=== PATIENT | female | born 1985 | race Caucasian/White ===

== ENCOUNTER 2017-12-27 12:50 | Emergency (ER) | payer MEDICAID ==
[~2017-12-27] VITALS: Ht 157.5 cm; Wt 63.0 kg
[~2017-12-27 12:50] MED LIST: ASPI-1265 PO
[2017-12-27] MEDS ORDERED: ketorolac tromethamine 15mg/ml inj. IM ONE (13:10)
[2017-12-27] MEDS ORDERED: proCHLORperazine 10 MG/2 ml inj IM ONE (13:10)
[2017-12-27 13:51] VITALS: BP 110/65
== END 2017-12-27 14:02 | disposition home or self-care (01) ==
LOC: ER 12:51
DX: G43.909 Migraine, unspecified, not intractable, without status migrainosus (principal); Z79.899 Other long term (current) drug therapy; Z91.018 Allergy to other foods; Z79.82 Long term (current) use of aspirin
CPT/HCPCS: 96372; 99284; J0780; J1885

== ENCOUNTER 2018-01-23 20:50 | Emergency (ER) | payer MEDICAID ==
[~2018-01-23] VITALS: Ht 157.5 cm; Wt 47.7 kg
[2018-01-23 21:02] VITALS: BP 107/54
[2018-01-23 21:57] LABS: CLARITY,URINE CLEAR (Clear); COLOR,URINE YELLOW (Yellow); GLUCOSE, URINE NEGATIVE (Neg); KETONES,URINE NEGATIVE (Neg); LEUKOCYTE ESTERASE ,URINE NEGATIVE (Neg); NITRITES, URINE NEGATIVE (Neg); OCCULT BLOOD,URINE NEGATIVE (Neg); PROTEIN,URINE NEGATIVE (Neg); UROBILINOGEN,URINE 0.2 E.U/dL (0.2-1.0)
[2018-01-23 21:59] LABS: BASOPHILS # (AUTO) 0.1 X10'3 (0-0.2); BASOPHILS % (AUTO) 0.5 % (0-1); EOSINOPHILS # (AUTO) 0.2 X10'3 (0-0.9); EOSINOPHILS % (AUTO) 1.8 % (0-6); HEMATOCRIT 38.5 % (35.0-45.0); HEMOGLOBIN 13.1 g/dl (12.0-16.0); LYMPHOCYTES # (AUTO) 2.6 X10'3 (1.1-4.8); LYMPHOCYTES % (AUTO) 24.3 % (21-51); MEAN CORPUSCULAR HEMOGLOBIN 32.1 PG (27.0-31.0); MEAN CORPUSCULAR HGB CONC 34.1 % (33.0-36.5); MEAN CORPUSCULAR VOLUME 94.1 FL (78-98); MEAN PLATELET VOLUME 8.2 FL (7.4-10.4); MONOCYTES # (AUTO) 0.9 X10'3 (0-0.9); NEUTROPHILS # (AUTO) 7.1 X10'3 (1.8-7.7); NEUTROPHILS % (AUTO) 65.4 % (42-75); PLATELET COUNT 213 X10'3 (140-440); RED BLOOD COUNT 4.09 X10'6 (4.20-5.60); RED CELL DISTRIBUTION WIDTH 12.7 % (11.5-14.5); WHITE BLOOD COUNT 10.8 X10'3 (4.5-11.0)
[2018-01-23 21:59] LABS: URINE HCG NEGATIVE (NEG)
[2018-01-23 22:02] LABS: UA COLLECTION TYPE CLN CATCH MIDSTREAM
[2018-01-23 22:15] LABS: ALANINE AMINOTRANSFERASE 16 U/L (12-78); ALBUMIN 3.3 G/DL (3.4-5.0); ALBUMIN/GLOBULIN RATIO 0.9 (1.1-1.5); ALKALINE PHOSPHATASE 73 IU/L (46-116); ANION GAP 9 (8-16); ASPARTATE AMINO TRANSFERASE 13 U/L (10-37); BILIRUBIN,TOTAL 0.4 MG/DL (0.1-1.0); BLOOD UREA NITROGEN 15 MG/DL (7-18); BUN/CREATININE RATIO 17.9 (6.6-38.0); CALCIUM 8.7 MG/DL (8.5-10.1); CHLORIDE 103 MMOL/L (99-107); CREATININE 0.84 MG/DL (0.40-0.90); GLUCOSE 91 MG/DL (70-104); LIPASE 278 U/L (73-393); POTASSIUM 4.1 MMOL/L (3.5-5.1); SODIUM 138 MMOL/L (135-145); TOTAL CARBON DIOXIDE 26.3 MMOL/L (24-32); TOTAL PROTEIN 6.9 G/DL (6.4-8.2); eGFR 79 ML/MIN
[2018-01-23] MEDS ORDERED: normal saline 1000ML IV soln IVB ONE ×2 (22:30)
[2018-01-23] MEDS ORDERED: ketorolac trometh. 30mg/ml inj. IV ONE (22:30)
[2018-01-23] MEDS ORDERED: morphine 4 MG/ML inj SYRINge IV ONE (22:30)
[2018-01-23] MEDS ORDERED: ondansetron/PF 4mg/2ml inj IV ONE (22:30)
[2018-01-23] MEDS ORDERED: ONDA4TAB9 PO (23:31)
[2018-01-23] MEDS ORDERED: MEDR10TA PO (23:31)
[2018-01-23] MEDS ORDERED: HYDR-3965 PO (23:31)
[2018-01-24] MEDS ORDERED: ondansetron 4mg rapidly disintigrating tab PO ONE
[2018-01-24] MEDS ORDERED: HYDROcodone/acetaminophen 10/325mg tab PO ONE
== END 2018-01-24 00:08 | disposition home or self-care (01) ==
LOC: ER 20:51
DX: N94.6 Dysmenorrhea, unspecified (principal); R10.30 Lower abdominal pain, unspecified; G43.909 Migraine, unspecified, not intractable, without status migrainosus; Z91.018 Allergy to other foods; Z79.82 Long term (current) use of aspirin; Z79.899 Other long term (current) drug therapy
CPT/HCPCS: 36415; 76856; 80053; 81003; 81025; 83690; 85025; 96374; 96375; 99285; J1885; J2270; J2405; J7030

== ENCOUNTER 2018-04-09 21:52 | Emergency (ER) | payer MEDICAID ==
[~2018-04-09] VITALS: Ht 157.5 cm; Wt 71.8 kg
[~2018-04-09 21:52] MED LIST changes: +MEDR10TA PO
[2018-04-09] MEDS ORDERED: acetaminophen 325mg tablet PO ONE (22:35)
[2018-04-09] MEDS ORDERED: dicyclomine 10 MG capsule PO ONE (22:35)
[2018-04-09] MEDS ORDERED: ketorolac trometh inj. 60 MG/2 ML VIAL IM ONE (22:35)
[2018-04-09] MEDS ORDERED: ondansetron 4mg rapidly disintigrating tab PO ONE (22:35)
[2018-04-09 22:50] LABS: BASOPHILS % (AUTO) 0.3 % (0-1); EOSINOPHILS # (AUTO) 0.3 X10'3 (0-0.9); EOSINOPHILS % (AUTO) 2.8 % (0-6); HEMATOCRIT 38.8 % (35.0-45.0); HEMOGLOBIN 13.1 g/dl (12.0-16.0); LYMPHOCYTES # (AUTO) 2.2 X10'3 (1.1-4.8); LYMPHOCYTES % (AUTO) 23.6 % (21-51); MEAN CORPUSCULAR HEMOGLOBIN 31.4 PG (27.0-31.0); MEAN CORPUSCULAR HGB CONC 33.7 % (33.0-36.5); MEAN CORPUSCULAR VOLUME 93.1 FL (78-98); MEAN PLATELET VOLUME 8.1 FL (7.4-10.4); MONOCYTES # (AUTO) 0.8 X10'3 (0-0.9); MONOCYTES % (AUTO) 8.4 % (2-12); NEUTROPHILS % (AUTO) 64.9 % (42-75); PLATELET COUNT 211 X10'3 (140-440); RED BLOOD COUNT 4.17 X10'6 (4.20-5.60); RED CELL DISTRIBUTION WIDTH 13.2 % (11.5-14.5); WHITE BLOOD COUNT 9.3 X10'3 (4.5-11.0)
[2018-04-09 23:05] LABS: ALANINE AMINOTRANSFERASE 17 U/L (12-78); ALBUMIN/GLOBULIN RATIO 0.9 (1.1-1.5); ALKALINE PHOSPHATASE 54 IU/L (46-116); ANION GAP 4 (8-16); ASPARTATE AMINO TRANSFERASE 12 U/L (10-37); BILIRUBIN,TOTAL 0.4 MG/DL (0.1-1.0); BLOOD UREA NITROGEN 10 MG/DL (7-18); BUN/CREATININE RATIO 12.7 (6.6-38.0); CALCIUM 8.4 MG/DL (8.5-10.1); CHLORIDE 108 MMOL/L (99-107); CREATININE 0.79 MG/DL (0.40-0.90); GLUCOSE 98 MG/DL (70-104); LIPASE 251 U/L (73-393); POTASSIUM 3.9 MMOL/L (3.5-5.1); SODIUM 141 MMOL/L (135-145); TOTAL CARBON DIOXIDE 28.6 MMOL/L (24-32); TOTAL PROTEIN 6.4 G/DL (6.4-8.2); eGFR 85 ML/MIN
[2018-04-09] MEDS ORDERED: orphenadrine citrate 60mg/2ml inj. IM ONE (23:10)
[2018-04-10 00:16] VITALS: BP 94/62
== END 2018-04-10 00:18 | disposition home or self-care (01) ==
LOC: ER 21:53
DX: R10.31 Right lower quadrant pain (principal); R10.32 Left lower quadrant pain; R11.0 Nausea; Z98.890 Other specified postprocedural states; Z91.018 Allergy to other foods; Z79.899 Other long term (current) drug therapy
CPT/HCPCS: 36415; 80053; 83690; 85025; 96372; 99284; J1885; J2360

== ENCOUNTER 2018-06-16 20:52 | Emergency (ER) | payer MEDICAID, OTHER ==
[~2018-06-16] VITALS: Ht 157.5 cm; Wt 64.0 kg
[2018-06-16 20:58] VITALS: BP 111/39
== END 2018-06-17 00:16 | disposition left against medical advice (07) ==
LOC: ER 20:53
DX: S00.83XA Contusion of other part of head, initial encounter (principal); R42 Dizziness and giddiness; G43.909 Migraine, unspecified, not intractable, without status migrainosus; Z91.018 Allergy to other foods; Z79.82 Long term (current) use of aspirin; Z53.21 Procedure and treatment not carried out due to patient leaving prior to being seen by health care provider; W22.8XXA Striking against or struck by other objects, initial encounter; Y93.89 Activity, other specified; Y92.89 Other specified places as the place of occurrence of the external cause; Y99.8 Other external cause status

== ENCOUNTER 2018-07-12 20:34 | Emergency (ER) | payer MEDICAID, OTHER ==
[~2018-07-12] VITALS: Ht 157.5 cm; Wt 63.0 kg
--- NOTE | 2018-07-12 21:21 | NUR ---
DR ABDULLAHI AT BEDSIDE WITH PT
[2018-07-12] MEDS ORDERED: pantoprazole 40 MG vial IV ONE (21:30)
[2018-07-12] MEDS ORDERED: ondansetron/PF 4mg/2ml inj IV ONE (21:30)
[2018-07-12] MEDS ORDERED: LORazepam 2 mg/ml vial IV ONE (21:30)
[2018-07-12] MEDS ORDERED: morphine 4 MG/ML inj SYRINge IV ONE (21:30)
[2018-07-12] MEDS ORDERED: normal saline 1000ML IV soln IVB ONE (21:30)
[2018-07-12 21:48] VITALS: BP 126/72
[2018-07-12 21:48] LABS: CLARITY,URINE CLEAR (Clear); COLOR,URINE STRAW (Yellow); GLUCOSE, URINE NEGATIVE (Neg); KETONES,URINE NEGATIVE (Neg); LEUKOCYTE ESTERASE ,URINE NEGATIVE (Neg); NITRITES, URINE NEGATIVE (Neg); OCCULT BLOOD,URINE TRACE-LYSED (Neg); PH,URINE 6.5 (4.8-8.0); PROTEIN,URINE NEGATIVE (Neg); URINE HCG NEGATIVE (NEG); UROBILINOGEN,URINE 0.2 E.U/dL (0.2-1.0)
[2018-07-12 21:52] LABS: BASOPHILS % (AUTO) 0.3 % (0-1); EOSINOPHILS # (AUTO) 0.2 X10'3 (0-0.9); HEMATOCRIT 37.8 % (35.0-45.0); HEMOGLOBIN 13.1 g/dl (12.0-16.0); LYMPHOCYTES # (AUTO) 2.1 X10'3 (1.1-4.8); LYMPHOCYTES % (AUTO) 18.8 % (21-51); MEAN CORPUSCULAR HEMOGLOBIN 32.1 PG (27.0-31.0); MEAN CORPUSCULAR HGB CONC 34.6 g/dL (33.0-36.5); MEAN CORPUSCULAR VOLUME 92.8 FL (78-98); MEAN PLATELET VOLUME 8.3 FL (7.4-10.4); MONOCYTES # (AUTO) 0.6 X10'3 (0-0.9); MONOCYTES % (AUTO) 5.1 % (2-12); NEUTROPHILS # (AUTO) 8.1 X10'3 (1.8-7.7); NEUTROPHILS % (AUTO) 73.8 % (42-75); PLATELET COUNT 236 X10'3 (140-440); RED BLOOD COUNT 4.07 X10'6 (4.20-5.60); RED CELL DISTRIBUTION WIDTH 12.9 % (11.5-14.5)
[2018-07-12 21:54] LABS: INR 1.1 INR; PROTHROMBIN TIME 10.7 SECONDS (9.0-12.0)
[2018-07-12 22:02] LABS: ALANINE AMINOTRANSFERASE 18 U/L (12-78); ALBUMIN 3.5 G/DL (3.4-5.0); ALBUMIN/GLOBULIN RATIO 0.9 (1.1-1.5); ALKALINE PHOSPHATASE 55 IU/L (46-116); ANION GAP 10 (8-16); ASPARTATE AMINO TRANSFERASE 12 U/L (10-37); BILIRUBIN,TOTAL 0.6 MG/DL (0.1-1.0); BLOOD UREA NITROGEN 11 MG/DL (7-18); BUN/CREATININE RATIO 14.1 (6.6-38.0); CALCIUM 8.8 MG/DL (8.5-10.1); CHLORIDE 104 MMOL/L (99-107); CREATININE 0.78 MG/DL (0.40-0.90); GLUCOSE 91 MG/DL (70-104); POTASSIUM 3.7 MMOL/L (3.5-5.1); SODIUM 140 MMOL/L (135-145); TOTAL CARBON DIOXIDE 26.5 MMOL/L (24-32); TOTAL PROTEIN 7.3 G/DL (6.4-8.2); eGFR 86 ML/MIN
[2018-07-12 22:14] LABS: UA COLLECTION TYPE CLN CATCH MIDSTREAM
[2018-07-12 22:16] LABS: BACTERIA,URINE NONE SEEN /HPF (Neg); RBC,URINE NONE SEEN /HPF (0-2); WBC,URINE NONE SEEN /HPF (0-4)
[2018-07-12 22:17] LABS: SQUAMOUS EPITHELIAL CELL,UR MODERATE /LPF (FEW)
[2018-07-12] MEDS ORDERED: morphine 2 MG/ML inj. syringe IV PRN (22:45)
[2018-07-12] MEDS ORDERED: ketorolac tromethamine 15mg/ml inj. IV ONE (22:45)
== END 2018-07-12 23:21 | disposition home or self-care (01) ==
LOC: ER 20:35
DX: N94.6 Dysmenorrhea, unspecified (principal); F12.90 Cannabis use, unspecified, uncomplicated; Z98.51 Tubal ligation status; Z98.890 Other specified postprocedural states; Z88.8 Allergy status to other drugs, medicaments and biological substances; Z91.018 Allergy to other foods; Z79.899 Other long term (current) drug therapy
CPT/HCPCS: 36415; 80053; 81001; 81025; 85025; 85610; 96374; 96375; 96376; 99283; C9113; J1885; J2060; J2270; J2405; J7030

== ENCOUNTER 2018-08-05 22:10 | Emergency (ER) | payer MEDICAID ==
[~2018-08-05] VITALS: Ht 157.5 cm; Wt 74.9 kg
[2018-08-05 22:13] VITALS: BP 109/61
[2018-08-05] MEDS ORDERED: ondansetron 4mg rapidly disintigrating tab PO ONE (23:30)
[2018-08-05] MEDS ORDERED: HYDROcodone/acetaminophen 10/325mg tab PO ONE (23:30)
[2018-08-05] MEDS ORDERED: ketorolac trometh. 30mg/ml inj. IM ONE (23:30)
== END 2018-08-06 00:02 | disposition home or self-care (01) ==
LOC: ER 22:10
DX: N94.6 Dysmenorrhea, unspecified (principal); G43.909 Migraine, unspecified, not intractable, without status migrainosus; F17.200 Nicotine dependence, unspecified, uncomplicated; F12.10 Cannabis abuse, uncomplicated; Z98.51 Tubal ligation status; Z88.8 Allergy status to other drugs, medicaments and biological substances; Z91.018 Allergy to other foods; Z79.82 Long term (current) use of aspirin
CPT/HCPCS: 96372; 99283; J1885

== ENCOUNTER 2019-01-03 21:05 | Emergency (ER) | payer MEDICAID, OTHER ==
[~2019-01-03] VITALS: Ht 157.5 cm; Wt 78.0 kg
[2019-01-03] MEDS ORDERED: ketorolac trometh. 30mg/ml inj. IM ONE (21:40)
[2019-01-03] MEDS ORDERED: proCHLORperazine 10 MG/2 ml inj IM ONE (21:40)
[2019-01-03 22:02] VITALS: BP 129/63
== END 2019-01-03 22:05 | disposition home or self-care (01) ==
LOC: ER 21:05
DX: G43.909 Migraine, unspecified, not intractable, without status migrainosus (principal); F17.200 Nicotine dependence, unspecified, uncomplicated; F12.90 Cannabis use, unspecified, uncomplicated; Z98.51 Tubal ligation status; Z98.890 Other specified postprocedural states; Z91.018 Allergy to other foods; Z88.8 Allergy status to other drugs, medicaments and biological substances; Z79.899 Other long term (current) drug therapy
CPT/HCPCS: 96372; 99283; J0780; J1885

== ENCOUNTER 2020-07-17 11:37 | Emergency (ER) | payer OTHER ==
[~2020-07-17] VITALS: Ht 157.5 cm; Wt 70.8 kg
[2020-07-17 12:18] LABS: BASOPHILS % (AUTO) 0.4 % (0-1); EOSINOPHILS # (AUTO) 0.1 X10'3 (0-0.9); EOSINOPHILS % (AUTO) 0.6 % (0-6); HEMATOCRIT 40.2 % (35.0-45.0); HEMOGLOBIN 13.6 g/dl (12.0-16.0); LYMPHOCYTES # (AUTO) 1.3 X10'3 (1.1-4.8); LYMPHOCYTES % (AUTO) 10.9 % (21-51); MEAN CORPUSCULAR HEMOGLOBIN 31.8 PG (27.0-31.0); MEAN CORPUSCULAR VOLUME 93.6 FL (78-98); MEAN PLATELET VOLUME 8.9 FL (7.4-10.4); MONOCYTES # (AUTO) 0.8 X10'3 (0-0.9); MONOCYTES % (AUTO) 7.1 % (2-12); NEUTROPHILS # (AUTO) 9.6 X10'3 (1.8-7.7); PLATELET COUNT 207 X10'3 (140-440); RED BLOOD COUNT 4.29 X10'6 (4.20-5.60); RED CELL DISTRIBUTION WIDTH 12.7 % (11.5-14.5); WHITE BLOOD COUNT 11.9 X10'3 (4.5-11.0)
[2020-07-17 12:24] LABS: URINE HCG NEGATIVE (NEG)
[2020-07-17 12:25] LABS: CLARITY,URINE CLEAR (Clear); COLOR,URINE YELLOW (Yellow); GLUCOSE, URINE NEGATIVE (Neg); KETONES,URINE NEGATIVE (Neg); LEUKOCYTE ESTERASE ,URINE SMALL (Neg); NITRITES, URINE NEGATIVE (Neg); OCCULT BLOOD,URINE NEGATIVE (Neg); PROTEIN,URINE NEGATIVE (Neg); UROBILINOGEN,URINE 0.2 E.U/dL (0.2-1.0)
[2020-07-17 12:33] LABS: UA COLLECTION TYPE CLN CATCH MIDSTREAM
[2020-07-17 12:38] LABS: ALANINE AMINOTRANSFERASE 15 U/L (12-78); ALBUMIN 3.6 G/DL (3.4-5.0); ALBUMIN/GLOBULIN RATIO 0.9 (1.1-1.5); ALKALINE PHOSPHATASE 59 IU/L (46-116); AMYLASE 69 U/L (25-115); ANION GAP 7 (8-16); ASPARTATE AMINO TRANSFERASE 14 U/L (10-37); BILIRUBIN,TOTAL 0.5 MG/DL (0.1-1.0); BLOOD UREA NITROGEN 7 MG/DL (7-18); BUN/CREATININE RATIO 9.3 (6.6-38.0); CHLORIDE 105 MMOL/L (99-107); CREATININE 0.75 MG/DL (0.40-0.90); GLUCOSE 100 MG/DL (70-104); LIPASE 124 U/L (73-393); SODIUM 141 MMOL/L (135-145); TOTAL CARBON DIOXIDE 28.6 MMOL/L (24-32); TOTAL PROTEIN 7.6 G/DL (6.4-8.2); eGFR 89 ML/MIN
[2020-07-17 13:18] LABS: BACTERIA,URINE FEW /HPF (Neg); RBC,URINE 0-2 /HPF (0-2); SQUAMOUS EPITHELIAL CELL,UR MODERATE /LPF (FEW); WBC,URINE 0-4 /HPF (0-4)
[2020-07-17] MEDS ORDERED: ketorolac tromethamine 15mg/ml inj. IV ONE (13:25)
[2020-07-17] MEDS ORDERED: ondansetron/PF 4mg/2ml inj IV ONE (13:25)
[2020-07-17] MEDS ORDERED: pantoprazole 40 MG vial IV ONE (13:25)
[2020-07-17] MEDS ORDERED: AMOX-422 PO (14:42)
[2020-07-17] MEDS ORDERED: ONDA4TAB6 PO (14:42)
[2020-07-17] MEDS ORDERED: morphine 4 MG/ML inj SYRINge IV ONE (14:50)
[2020-07-17 15:12] VITALS: BP 98/71
== END 2020-07-17 15:20 | disposition home or self-care (01) ==
LOC: ER 11:38
DX: R10.32 Left lower quadrant pain (principal); R11.0 Nausea; K57.92 Diverticulitis of intestine, part unspecified, without perforation or abscess without bleeding; G43.909 Migraine, unspecified, not intractable, without status migrainosus; F12.90 Cannabis use, unspecified, uncomplicated; Z98.51 Tubal ligation status; Z98.890 Other specified postprocedural states; Z88.8 Allergy status to other drugs, medicaments and biological substances; Z91.018 Allergy to other foods; Z79.2 Long term (current) use of antibiotics; Z79.899 Other long term (current) drug therapy
CPT/HCPCS: 36415; 74176; 80053; 81001; 81025; 82150; 83690; 85025; 87088; 96374; 96375; 99285; C9113; J1885; J2270; J2405

== ENCOUNTER 2021-08-23 21:14 | Emergency (ER) | payer OTHER ==
[~2021-08-23] VITALS: Ht 157.5 cm; Wt 56.0 kg
[~2021-08-23 21:14] MED LIST changes: +ONDA4TAB6 PO
[2021-08-23 21:17] VITALS: BP 99/27
[2021-08-23] MEDS ORDERED: TETanus/Pertussis (Acell)/Diphther VAC/PF (Tdap-Adult) 0.5ml syringe IMVAC ONE (21:40)
[2021-08-23] MEDS ORDERED: bacitracin 15gm ointment TP ONE (21:40)
[2021-08-23] MEDS ORDERED: ibuprofen tablet 400 MG TABLET PO ONE (22:15)
[2021-08-23] MEDS ORDERED: AMOX-580 PO (22:16)
[2021-08-23] MEDS ORDERED: amox tr/potassium clavulanate 875/125mg TAB PO ONE (22:20)
== END 2021-08-23 22:26 | disposition home or self-care (01) ==
LOC: ER 21:15
DX: S61.502A Unspecified open wound of left wrist, initial encounter (principal); F12.90 Cannabis use, unspecified, uncomplicated; G40.909 Epilepsy, unspecified, not intractable, without status epilepticus; Z98.51 Tubal ligation status; Z79.82 Long term (current) use of aspirin; Z79.2 Long term (current) use of antibiotics; Z91.018 Allergy to other foods; W54.0XXA Bitten by dog, initial encounter; Y93.K1 Activity, walking an animal; Y92.89 Other specified places as the place of occurrence of the external cause; Y99.8 Other external cause status
CPT/HCPCS: 73090; 90471; 90715; 99284

== ENCOUNTER 2023-04-27 02:08 | Emergency (ER) | payer MEDICAID ==
[~2023-04-27] VITALS: Ht 157.5 cm; Wt 66.9 kg
[2023-04-27 02:16] VITALS: TEMP 98
[2023-04-27] MEDS ORDERED: ketorolac trometh. 30mg/ml inj. IV ONE (02:45)
[2023-04-27] MEDS ORDERED: normal saline 1000ml 1,000 ML IV ONE (02:45)
[2023-04-27 03:15] LABS: BASOPHILS # (AUTO) 0.1 X10'3 (0-0.2); BASOPHILS % (AUTO) 1.8 % (0-1); EOSINOPHILS # (AUTO) 0.2 X10'3 (0-0.9); EOSINOPHILS % (AUTO) 2.1 % (0-6); HEMATOCRIT 37.4 % (35.0-45.0); HEMOGLOBIN 12.7 g/dl (12.0-16.0); LYMPHOCYTES # (AUTO) 1.6 X10'3 (1.1-4.8); LYMPHOCYTES % (AUTO) 20.2 % (21-51); MEAN CORPUSCULAR HEMOGLOBIN 32.7 PG (27.0-31.0); MEAN CORPUSCULAR VOLUME 96.2 FL (78-98); MEAN PLATELET VOLUME 8.8 FL (7.4-10.4); MONOCYTES # (AUTO) 0.6 X10'3 (0-0.9); MONOCYTES % (AUTO) 7.8 % (2-12); NEUTROPHILS # (AUTO) 5.4 X10'3 (1.8-7.7); NEUTROPHILS % (AUTO) 68.1 % (42-75); PLATELET COUNT 176 X10'3 (140-440); RED BLOOD COUNT 3.89 X10'6 (4.20-5.60); RED CELL DISTRIBUTION WIDTH 13.1 % (11.5-14.5)
[2023-04-27 03:19] LABS: ALANINE AMINOTRANSFERASE 21 U/L (12-78); ALBUMIN 3.2 G/DL (3.4-5.0); ALBUMIN/GLOBULIN RATIO 1.1 (1.1-1.5); ALKALINE PHOSPHATASE 63 IU/L (46-116); ANION GAP 9 (8-16); ASPARTATE AMINO TRANSFERASE 16 U/L (10-37); BILIRUBIN,TOTAL 0.5 MG/DL (0.1-1.0); BLOOD UREA NITROGEN 12 MG/DL (7-18); BUN/CREATININE RATIO 15.4 (10.0-20.0); CALCIUM 8.7 MG/DL (8.5-10.1); CHLORIDE 105 MMOL/L (99-107); CREATININE 0.78 MG/DL (0.40-0.90); GLUCOSE 106 MG/DL (70-104); LIPASE 111 U/L (16-77); POTASSIUM 3.8 MMOL/L (3.5-5.1); SODIUM 141 MMOL/L (135-145); TOTAL CARBON DIOXIDE 26.6 MMOL/L (24-32); TOTAL PROTEIN 6.2 G/DL (6.4-8.2); eCRCL 79 ML/MIN; eGFR 84 ML/MIN
[2023-04-27] MEDS ORDERED: bisacodyl 5mg tablet.DR PO ONE (03:45)
[2023-04-27 04:12] LABS: URINE HCG NEGATIVE (NEG)
[2023-04-27 04:13] LABS: BILIRUBIN,URINE NEGATIVE (Neg); CLARITY,URINE SLIGHTLY CLOUDY (Clear); COLOR,URINE YELLOW (Yellow); GLUCOSE, URINE NEGATIVE (Neg); KETONES,URINE NEGATIVE (Neg); LEUKOCYTE ESTERASE ,URINE TRACE (Neg); NITRITES, URINE NEGATIVE (Neg); OCCULT BLOOD,URINE NEGATIVE (Neg); PROTEIN,URINE NEGATIVE (Neg); UROBILINOGEN,URINE 0.2 E.U/dL (0.2-1.0)
[2023-04-27 04:14] LABS: UA COLLECTION TYPE CLN CATCH MIDSTREAM
[2023-04-27 04:19] LABS: BACTERIA,URINE FEW /HPF (Neg); RBC,URINE 0-2 /HPF (0-2); SQUAMOUS EPITHELIAL CELL,UR MANY /LPF (FEW)
[2023-04-27 04:20] LABS: TRICHOMONAS,URINE FEW /HPF (NEGATIVE)
[2023-04-27 04:26] LABS: MUCUS STRANDS MODERATE /LPF (Neg)
[2023-04-27 04:31] LABS: URINE AMPHETAMINE SCREEN NEGATIVE (Neg); URINE BARBITUATE SCREEN NEGATIVE (Neg); URINE BENZODIAZEPINES SCREEN NEGATIVE (Neg); URINE CANNABINOID SCREEN POSITIVE (Neg); URINE COCAINE SCREEN NEGATIVE (Neg); URINE METHADONE SCREEN NEGATIVE (Neg); URINE OPIATE SCREEN NEGATIVE (Neg); URINE PHENCYCLIDINE SCREEN NEGATIVE (Neg)
[2023-04-27] MEDS ORDERED: BISA-78 PO (04:53)
[2023-04-27 05:12] VITALS: BP 100/59; PULSE 68; RESP 16; O2SAT 99
== END 2023-04-27 05:02 | disposition home or self-care (01) ==
LOC: ER 02:09
DX: K59.00 Constipation, unspecified (principal); G43.909 Migraine, unspecified, not intractable, without status migrainosus; Z91.018 Allergy to other foods
CPT/HCPCS: 36415; 74176; 80053; 80305; 81001; 81025; 83690; 84145; 85025; 96361; 96374; 99285; J1885; J7030

== ENCOUNTER 2023-10-07 16:17 | Emergency (ER) | payer MEDICAID, OTHER ==
[~2023-10-07] VITALS: Ht 157.5 cm; Wt 68.2 kg
[~2023-10-07 16:17] MED LIST changes: +BISA-78 PO
[2023-10-07] MEDS: ibuprofen 200mg tablet PO ONE (17:50)
[2023-10-07] MEDS: TETanus/Pertussis (Acell)/Diphther VAC/PF (Tdap-Adult) 0.5ml syringe IMVAC ONE (17:51)
[2023-10-07] MEDS: LIDOcaine 1% 30ml preserv. free vial IJ ONE (18:03)
[2023-10-07 19:11] VITALS: BP 125/80; PULSE 74; RESP 16; TEMP 98.9; O2SAT 98
== END 2023-10-07 19:18 | disposition home or self-care (01) ==
LOC: ER 16:17
DX: S61.211A Laceration without foreign body of left index finger without damage to nail, initial encounter (principal); Z91.018 Allergy to other foods; Z79.2 Long term (current) use of antibiotics; Z79.899 Other long term (current) drug therapy; Z79.82 Long term (current) use of aspirin; W26.0XXA Contact with knife, initial encounter; Y93.89 Activity, other specified; Y92.89 Other specified places as the place of occurrence of the external cause; Y99.8 Other external cause status
CPT/HCPCS: 12001; 90471; 90715; 99283; A6449

== ENCOUNTER 2024-06-05 14:23 | Emergency (ER) | payer SELFPAY ==
[~2024-06-05] VITALS: Ht 157.5 cm; Wt 70.2 kg
[2024-06-05 14:32] VITALS: BP 112/58; PULSE 75; RESP 18; O2SAT 99
[2024-06-05] MEDS ORDERED: ONDA-245 PO (15:26)
[2024-06-05 15:43] VITALS: TEMP 97.5
== END 2024-06-05 15:40 | disposition home or self-care (01) ==
LOC: ER 14:23
DX: B34.9 Viral infection, unspecified (principal); G43.909 Migraine, unspecified, not intractable, without status migrainosus; F12.90 Cannabis use, unspecified, uncomplicated; Z88.8 Allergy status to other drugs, medicaments and biological substances; Z90.721 Acquired absence of ovaries, unilateral; Z98.51 Tubal ligation status
CPT/HCPCS: 99283

== ENCOUNTER 2025-03-22 21:28 | Emergency (ER) | payer SELFPAY ==
[~2025-03-22] VITALS: Ht 157.5 cm; Wt 80.0 kg
[~2025-03-22 21:28] MED LIST changes: +ONDA-245 PO
[2025-03-22 21:34] VITALS: BP 127/78; PULSE 75; RESP 18; O2SAT 99
--- NOTE | 2025-03-22 23:56 | Physician Documentation ---
History of Present Illness ~ Chief Complaint: Thermal Burn Stated Complaint: BURNT HAND Time Seen by MD: 23:33 Primary Medical Doctor: None HPI Patient is a 39-year-old female that presents to the emergency department for evaluation of a small burn to the palmar aspect of her right hand. There are no blisters visible at this time. Patient reports that she took 2 800 mg ibuprofen and a 1000 mg of Tylenol prior to presenting to the emergency department this evening. Patient reports that the pain is still significant in that the medication did not help at all. Patient drove herself to the emergency department tonight patient does not have anyone that can come get her from the emergency department. Tetanus within 5 years?: No Medication Reconciliation Allergies: Coded Allergies: pineapple (Verified Allergy, Mild, CAN'T BREATH, 03/22/25) diphenhydramine (Verified Adverse Reaction, Unknown, RESTLESS LEGS, 03/22/25) Scheduled Bisacodyl (Dulcolax), 4 TAB PO ONCE Medroxyprogesterone Acet (Provera), 1 TAB PO DAILY Ondansetron 8mg ODT (Ondansetron Odt), 1 TAB PO Q6H Ondansetron Hcl (Zofran), 1 TAB PO Q6H PRN Scheduled PRN Aspirin (Aspirin), 1 TAB.CHEW PO DAILY PRN for pain, (Reported) Past Medical History Past Medical History: Headache, Migraine, Diverticulitis Past Surgical History: tubal ligation, other Other Past Surgical History: ovary removal L Alcohol Use: None Drug Use: marijuana Lives with: Family Lives In: Home Review of Systems ROS As stated above in the HPI, otherwise all systems are reviewed and negative. Physical Exam Vital Signs: Temperature: 97.1, Heart Rate: 75, Respiratory Rate: 18, BP: 127/78, Pulse Oximetry: 99, Weight: 80.000 Physical Exam VITALS: Reviewed and as above. GENERAL: Alert, no apparent distress. HEENT: Normocephalic, atraumatic, PERRL, EOMI, dry mucosa, no erythema RESPIRATORY: Lungs clear, normal breath sounds, no respiratory distress. CHEST: No accessory muscle use, no retractions CV: Regular rate, rhythm, no edema, no murmur, No: JVD GI: Soft, non-tender, bowels sounds present, no rebound, guarding, or rigidity BACK: No CVA tenderness, or swelling MUSCULOSKELETAL No deformities, no edema SKIN: Warm and dry, second-degree burn to the palmar aspect of the right hand encompassing a portion of the palm in the proximal joints of digits 2 through 5. NEURO: Oriented x4, No motor or sensory deficit PSYCH: Normal mood and affect, no agitation Progress Results/Orders Results/Orders Vital Signs 03/22/25 21:34 Temp 97.1 Pulse 75 Resp 18 B/P (MAP) 127/78 Pulse Ox 99 Medical Decision Making Additional information obtaine: other Findings Patient is a 39-year-old female that presents to the emergency department for evaluation of a burn to the right palmar aspect of her hand after lifting up a malin that was hot. He has been evaluated there are no blisters to debride at this time although blisters may erupt later on. Have provided the patient with thorough education on debridement of those blisters and wound care for the next several days. Patient has been provided with wound care supplies and shown how to change the dressing to the hand. Patient took 816 100 mg of ibuprofen and a 1000 mg of Tylenol prior to presentation to the emergency department. Patient was driving herself this evening so we are unable to give her any additional medication. Offered to prescribe the patient 2 days' worth of Steele patient declined at this time. Patient's wound has been cleaned and dressed. Patient will follow up with her primary care provider. Patient will return to the emergency department with any worsening or recurrent symptoms or any additional concerning symptoms that we discussed here today i.e. increased redness i ncreased swelling fever chills nausea vomiting or any other symptoms that we discussed here today. Differential Dx:Considerations: Include: Acidosis, Burn-Partial thickness, Burn-Full thickness, Carbon monoxide poisoning, Hypovolemia, Pneumonia, Pneumonitis, Pulmonary thermal injury, Renal failure, Respiratory failure, Rhabdomyolysis, Sepsis, SIRS, Upper airway obstruction, Other Departure Disposition: 01 HOME / SELF CARE / HOMELESS Impression: Primary Impression: Burn of hand, right Condition: Stable Discharge Instructions: Burn Care, Adult Additional Instructions: Patient is a 39-year-old female that presents to the emergency department for evaluation of a burn to the right palmar aspect of her hand after lifting up a malin that was hot. He has been evaluated there are no blisters to debride at this time although blisters may erupt later on. Have provided the patient with thorough education on debridement of those blisters and wound care for the next several days. Patient has been provided with wound care supplies and shown how to change the dressing to the hand. Patient took 816 100 mg of ibuprofen and a 1000 mg of Tylenol prior to presentation to the emergency department. Patient was driving herself this evening so we are unable to give her any additional medication. Offered to prescribe the patient 2 days' worth of Steele patient dec lined at this time. Patient's wound has been cleaned and dressed. Patient will follow up with her primary care provider. Patient will return to the emergency department with any worsening or recurrent symptoms or any additional concerning symptoms that we discussed here today i.e. increased redness increased swelling fever chills nausea vomiting or any other symptoms that we discussed here today. Referrals: NO PRIMARY CARE PROVIDER (PCP) Education Educated: Patient Educated regarding: diagnosis, treatment, need for follow up Signature Scribe Signature: A Attestation: Scribed for Fede Perkins by MIRIAM Conway . 03/22/25 23:57 FEDE PERKINS Mar 22, 2025 23:56
[2025-03-23 00:01] VITALS: TEMP 97.1
== END 2025-03-23 00:04 | disposition home or self-care (01) ==
LOC: ER 21:28
DX: T23.201A Burn of second degree of right hand, unspecified site, initial encounter (principal); Z88.8 Allergy status to other drugs, medicaments and biological substances; Z98.51 Tubal ligation status; X58.XXXA Exposure to other specified factors, initial encounter; Y93.89 Activity, other specified; Y92.89 Other specified places as the place of occurrence of the external cause; Y99.8 Other external cause status
CPT/HCPCS: 99282